=== PATIENT | male | born 1935 | race Caucasian/White ===

== ENCOUNTER 2018-09-17 07:13 | Day surgery (SDC) | payer MEDICARE ==
[~2018-09-17] VITALS: Ht 172.7 cm; Wt 74.3 kg
[2018-09-17] VITALS (7 sets, daily range): BP systolic 120–153; BP diastolic 67–100
[~2018-09-17 07:13] MED LIST: BENA20TA82 PO; GEMF600T89 PO; SYN0.0125T PO
[2018-09-17] MEDS ORDERED: normal saline 1000ml 1,000 ML IV PRN (07:45)
[2018-09-17] MEDS ORDERED: vancomycin inj 500 MG in normal saline 100ml IV soln 100 ML IV ONE (07:45)
[2018-09-17] MEDS ORDERED: ALFU10TA10 PO (07:49)
[2018-09-17] MEDS ORDERED: ALBU18HF2 INH (07:49)
[2018-09-17] MEDS ORDERED: MAGN200T8 (07:49)
[2018-09-17] MEDS ORDERED: POTA20TA19 PO (07:49)
[2018-09-17] MEDS ORDERED: FLUT50BL (07:49)
[2018-09-17] MEDS ORDERED: AMLO2.5T2 PO (07:49)
[2018-09-17] MEDS ORDERED: METO25TA6 PO (07:49)
[2018-09-17] MEDS ORDERED: ALBU8HFA PO (07:49)
[2018-09-17 08:27] LABS: BASOPHILS % (AUTO) 0.4 % (0-1); EOSINOPHILS # (AUTO) 0.1 X10'3 (0-0.9); EOSINOPHILS % (AUTO) 1.2 % (0-6); HEMATOCRIT 28.6 % (42.0-52.0); HEMOGLOBIN 9.7 g/dl (14.0-17.9); LYMPHOCYTES # (AUTO) 0.5 X10'3 (1.1-4.8); LYMPHOCYTES % (AUTO) 5.9 % (21-51); MEAN CORPUSCULAR HEMOGLOBIN 29.4 PG (27.0-31.0); MEAN CORPUSCULAR HGB CONC 33.9 g/dL (33.0-36.5); MEAN CORPUSCULAR VOLUME 86.9 FL (78-98); MEAN PLATELET VOLUME 7.1 FL (7.4-10.4); MONOCYTES # (AUTO) 0.6 X10'3 (0-0.9); MONOCYTES % (AUTO) 7.6 % (2-12); NEUTROPHILS # (AUTO) 7.3 X10'3 (1.8-7.7); NEUTROPHILS % (AUTO) 84.9 % (42-75); PLATELET COUNT 150 X10'3 (140-440); RED BLOOD COUNT 3.29 X10'6 (4.70-6.10); WHITE BLOOD COUNT 8.6 X10'3 (4.5-11.0)
[2018-09-17 08:35] LABS: ALBUMIN 3.8 G/DL (3.4-5.0); ANION GAP 19 (8-16); BLOOD UREA NITROGEN 81 MG/DL (7-18); BUN/CREATININE RATIO 13.7 (5.4-32.0); CALCIUM 9.2 MG/DL (8.5-10.1); CHLORIDE 106 MMOL/L (99-107); CREATININE 5.91 MG/DL (0.60-1.10); GLUCOSE 102 MG/DL (70-104); POTASSIUM 5.4 MMOL/L (3.5-5.1); SODIUM 138 MMOL/L (135-145); eGFR 9 ML/MIN
[2018-09-17 08:37] LABS: TOTAL CARBON DIOXIDE 13.4 MMOL/L (24-32)
[2018-09-17] MEDS ORDERED: midazolam 2 mg/2 ml injection IV PRN (09:35)
[2018-09-17] MEDS ORDERED: fentaNYL/PF 50MCG/1 ML 2ML syringe IV PRN (09:35)
[2018-09-17] MEDS ORDERED: LIDOcaine 1%/PF 5ML 10 MG/ML VIAL SQ ONE (09:35)
[2018-09-17] MEDS ORDERED: iohexol 300 MG/1 ML 50ml polymer ONE (09:58)
[2018-09-17] MEDS ORDERED: LIDOcaine 1%/PF 5ML 10 MG/ML VIAL ONE ×2 (09:58→11:09)
[2018-09-17] MEDS ORDERED: fentaNYL/PF 50MCG/1 ML 2ML syringe ONE ×2 (09:59→10:50)
[2018-09-17] MEDS ORDERED: midazolam 2 mg/2 ml injection ONE (09:59)
== END 2018-09-17 13:15 | disposition home or self-care (01) ==
LOC: SSTAY O 07:13
PROVIDERS: ATTEND Radiology Diagnostic Radiology
DX: T83.022A Displacement of nephrostomy catheter, initial encounter (principal); J44.9 Chronic obstructive pulmonary disease, unspecified; I10 Essential (primary) hypertension; E03.9 Hypothyroidism, unspecified; E78.1 Pure hyperglyceridemia; Z79.899 Other long term (current) drug therapy; Z88.0 Allergy status to penicillin; Z88.1 Allergy status to other antibiotic agents; Z98.890 Other specified postprocedural states; Y83.8 Other surgical procedures as the cause of abnormal reaction of the patient, or of later complication, without mention of misadventure at the time of the procedure; Y92.89 Other specified places as the place of occurrence of the external cause
CPT/HCPCS: 36415; 50432; 50435; 76937; 80048; 85025; 99152; 99153; C1769; C1894; J2250; J3010; J3370; J7030; Q9967